=== PATIENT | female | born 1970 | race Caucasian/White ===

== ENCOUNTER 2021-08-06 08:58 | Emergency (ER) | payer BC, OTHER ==
[2021-08-06] MEDS: Alum Hydrox/Mag Hydrox/Simeth 30 ML, Lidocaine 2% 15 ML PO ONE ×2 (10:31)
[2021-08-06] MEDS: Albuterol/Ipratropium 3.0-0.5 MG/3 ML Neb Soln NEB PRN (11:16)
== END 2021-08-06 12:30 | disposition home or self-care (01) ==
LOC: JD.ED 08:58
DX: T17.590A Other foreign object in bronchus causing asphyxiation, initial encounter (principal); R07.89 Other chest pain; J45.909 Unspecified asthma, uncomplicated; Z86.16 Personal history of COVID-19; Z88.5 Allergy status to narcotic agent; Z88.2 Allergy status to sulfonamides; Z88.8 Allergy status to other drugs, medicaments and biological substances
CPT/HCPCS: 36415; 71045; 80053; 83735; 83880; 84484; 85025; 85379; 85610; 85730; 86140; 93005; 94640; 99285; A9270; 93010; J7620-GY

== ENCOUNTER 2024-10-10 04:10 | Inpatient (IN) | payer OTHER ==
[2024-10-10 04:54] LABS: BASOPHILS PERCENT AUTO 0.4 % (0.0-1.0); EOSINOPHILS ABSOLUTE AUTO 1.6 K/mm3 (0.0-0.4); EOSINOPHILS PERCENT AUTO 17.2 % (0.0-6.0); HEMATOCRIT 49.8 % (37.0-47.0); HEMOGLOBIN 15.9 gm/dl (12.0-16.0); IMMATURE GRAN ABSOLUTE AUTO 0.02 K/mm3 (0.00-0.05); IMMATURE GRAN PERCENT AUTO 0.2 % (0.0-0.4); LYMPHOCYTES ABSOLUTE AUTO 3.2 K/mm3 (1.0-4.8); LYMPHOCYTES PERCENT AUTO 35.7 % (24.0-44.0); MEAN CORPUSCULAR HEMOGLOBIN 25.6 pg (28.0-32.0); MEAN CORPUSCULAR HGB CONC 31.9 g/dl (32.0-36.0); MEAN CORPUSCULAR VOLUME 80.1 fl (83.0-99.0); MEAN PLATELET VOLUME 10.4 fl (9.4-12.3); MONOCYTES ABSOLUTE AUTO 0.4 K/mm3 (0.0-0.8); MONOCYTES PERCENT AUTO 4.7 % (0.0-8.0); NEUTROPHILS ABSOLUTE AUTO 3.8 K/mm3 (1.8-7.7); NEUTROPHILS PERCENT AUTO 41.8 % (41.0-71.0); PLATELET COUNT,PLT 307 K/mm3 (150-400); RED BLOOD CELL COUNT 6.22 M/mm3 (4.10-5.30); WHITE BLOOD CELL COUNT,WBC 9.06 K/mm3 (3.9-11.3)
[2024-10-10 05:06] LABS: ALBUMIN 3.6 g/dl (3.4-5.0); ANION GAP 17.3 (5-15); BILIRUBIN TOTAL 0.6 mg/dL (0.2-1.0); BUN/CREATININE RATIO 13.3 (14-18); CALCIUM 9.5 mg/dL (8.5-10.1); CREATININE 0.9 mg/dL (0.55-1.02); EST CRCL DRUG DOSING (CG) 66.9 mL/min; PROTEIN TOTAL,TP 7.1 g/dl (6.4-8.2)
[2024-10-10 05:07] LABS: POTASSIUM,K 4.3 mEq/L (3.5-5.1)
[2024-10-10] MEDS: Sodium Chloride 0.9% 10 ML Syringe FLUSH PRN (05:45)
[2024-10-10] MEDS: Iopamidol 612 MG/ML 100 ML Bottle IVPUSH ONE (05:45)
[2024-10-10 05:55] LABS: APPEARANCE,URINE CLEAR (Clear); BILIRUBIN,URINE NEGATIVE (Negative); COLOR,URINE LIGHT YELLOW (Yellow); GLUCOSE,URINE NEGATIVE (Negative); KETONES,URINE NEGATIVE (Negative); LEUKOCYTE ESTERASE,URINE 2+ (Negative); NITRITE,URINE NEGATIVE (Negative); OCCULT BLOOD,URINE TRACE-LYSED (Negative); PROTEIN,URINE NEGATIVE (Negative); UROBILINOGEN,URINE 0.2 (0.2-1.0)
[2024-10-10 06:03] LABS: RBC,URINE 0-5 /hpf (0-5); WBC CLUMPS,URINE FEW /hpf (NOT SEEN); WBC,URINE 75-100 /hpf (0-5)
[2024-10-10 06:04] LABS: BACTERIA,URINE FEW /hpf (FEW); MUCUS,URINE RARE /hpf (FEW)
[2024-10-10] MEDS: Sodium Chloride 0.9% 2,000 ML IV ONE (06:13)
[2024-10-10] MEDS ORDERED: Ondansetron 4 MG/2 ML SDV IV PRN (06:47)
[2024-10-10] MEDS ORDERED: Naloxone 0.4 MG/ML SDV IVPUSH PRN (06:47)
[2024-10-10] MEDS ORDERED: Acetaminophen 650 MG Supp RECTAL PRN (06:47)
[2024-10-10] MEDS: cefTRIAXone 1 GM Vial IVPUSH ONE (07:18)
[2024-10-10] MEDS: cefTRIAXone 1 GM Vial ONE (07:27)
[2024-10-10] MEDS: cefTRIAXone 1,000 MG in Sodium Chloride 0.9% 50 ML IV ONE (07:27)
[2024-10-10] MEDS: Lactated Ringers 1,000 ML IV SCH (08:13)
[2024-10-10] MEDS: Ketorolac 30 MG/ML SDV IV PRN (08:25)
[2024-10-10] MEDS ORDERED: Sennosides/Docusate Sodium 50-8.6 MG Tab PO PRN (11:24)
[2024-10-10] MEDS ORDERED: Non-Formulary Medication 1 Each (Albuterol Sulfate 8.5 GM Hfa.Aer.Ad) INH PRN (11:28)
[2024-10-10] MEDS ORDERED: Albuterol/Ipratropium 3.0-0.5 MG/3 ML Neb Soln INH PRN (11:28)
[2024-10-10 11:30] LABS: AMYLASE 65 U/L (25-115); TRIGLYCERIDES 58 mg/dL (<150)
[2024-10-10 12:08] LABS: IRON,FE 56 ug/dL (50-170); PERCENT FE SATURATION 23 % (20-55); TRANSFERRIN 195 mg/dL (202-364)
[2024-10-10 12:11] LABS: TOTAL IRON BINDING CAPACITY 244 ug/dL (100-400); TSH 1.14 uIU/mL (0.358-3.74)
[2024-10-10] MEDS: Enoxaparin 40 MG/0.4 ML Syringe SUBCUT SCH (12:11)
[2024-10-10] MEDS ORDERED: Albuterol/Ipratropium 3.0-0.5 MG/3 ML Neb Soln NEB PRN (13:33)
[2024-10-10] MEDS: HYDROmorphone 0.5 MG/0.5 ML Syringe IVPUSH PRN (14:13)
[2024-10-10] MEDS: Melatonin 3 MG Tab PO PRN (20:56)
[2024-10-11] MEDS: Acetaminophen/HYDROcodone 325-5 MG Tab PO PRN (05:42)
[2024-10-11 05:46] LABS: BASOPHILS PERCENT AUTO 0.4 % (0.0-1.0); EOSINOPHILS ABSOLUTE AUTO 1.6 K/mm3 (0.0-0.4); EOSINOPHILS PERCENT AUTO 19.6 % (0.0-6.0); HEMATOCRIT 39.9 % (37.0-47.0); IMMATURE GRAN ABSOLUTE AUTO 0.01 K/mm3 (0.00-0.05); IMMATURE GRAN PERCENT AUTO 0.1 % (0.0-0.4); LYMPHOCYTES ABSOLUTE AUTO 2.4 K/mm3 (1.0-4.8); LYMPHOCYTES PERCENT AUTO 30.4 % (24.0-44.0); MEAN CORPUSCULAR HEMOGLOBIN 25.3 pg (28.0-32.0); MEAN CORPUSCULAR HGB CONC 31.8 g/dl (32.0-36.0); MEAN CORPUSCULAR VOLUME 79.5 fl (83.0-99.0); MEAN PLATELET VOLUME 10.5 fl (9.4-12.3); MONOCYTES ABSOLUTE AUTO 0.4 K/mm3 (0.0-0.8); MONOCYTES PERCENT AUTO 5.2 % (0.0-8.0); NEUTROPHILS ABSOLUTE AUTO 3.5 K/mm3 (1.8-7.7); NEUTROPHILS PERCENT AUTO 44.3 % (41.0-71.0); PLATELET COUNT,PLT 253 K/mm3 (150-400); RED BLOOD CELL COUNT 5.02 M/mm3 (4.10-5.30); WHITE BLOOD CELL COUNT,WBC 7.94 K/mm3 (3.9-11.3)
[2024-10-11 05:52] LABS: HEMOGLOBIN 12.7 gm/dl (12.0-16.0)
[2024-10-11 06:16] LABS: A/G RATIO 0.9 (1-2); ALBUMIN 2.6 g/dl (3.4-5.0); ANION GAP 9.9 (5-15); BILIRUBIN TOTAL 0.5 mg/dL (0.2-1.0); C-REACTIVE PROTEIN 1.43 mg/dL (<0.30); CALCIUM 8.4 mg/dL (8.5-10.1); CREATININE 0.7 mg/dL (0.55-1.02); EST CRCL DRUG DOSING (CG) 65.99 mL/min; MAGNESIUM 1.8 mg/dL (1.8-2.4); PHOSPHORUS 3.7 mg/dL (2.6-4.7); POTASSIUM,K 3.9 mEq/L (3.5-5.1); PROTEIN TOTAL,TP 5.4 g/dl (6.4-8.2)
[2024-10-11] MEDS: Gadobenate Dimeglumine 529 MG/ML 20 ML SDV IVPUSH ONE (08:31)
[2024-10-11] MEDS: Sodium Chloride 0.9% 100 ML IV SCH (08:32)
[2024-10-11] MEDS ORDERED: oxyCODONE 5 MG Tab PO PRN (08:40)
[2024-10-11] MEDS: Lactated Ringers 1,000 ML IV SCH (11:15)
[2024-10-11] MEDS: Fluconazole 150 MG Tab PO ONE (15:04)
[2024-10-11] MEDS: Acetaminophen 325 MG Tab PO PRN (17:44)
[2024-10-12] MEDS: Loperamide 2 MG Cap PO PRN (05:51)
[2024-10-14 13:46] LABS: FAT, FECAL-SPLIT Normal (Normal); FAT,FECAL-NEUTRAL Normal (Normal)
[2024-10-14 15:46] LABS: CALPROTECTIN,FECAL 74 ug/g (<=49); PANCREATIC ELASTASE,FECAL >800 ug/g (>=100)
== END 2024-10-12 13:42 | disposition home or self-care (01) | DRG 439 ==
LOC: JD.ED 04:10 → JD.MS 06:47
PROVIDERS: ADMIT Student in an Organized Health Care Education/Training Program; ATTEND Internal Medicine
DX: K85.80 Other acute pancreatitis without necrosis or infection (principal); E87.20 Acidosis, unspecified; Q45.3 Other congenital malformations of pancreas and pancreatic duct; R55 Syncope and collapse; E86.0 Dehydration; S00.33XA Contusion of nose, initial encounter; M79.7 Fibromyalgia; K44.9 Diaphragmatic hernia without obstruction or gangrene; K76.0 Fatty (change of) liver, not elsewhere classified; K43.9 Ventral hernia without obstruction or gangrene; R82.90 Unspecified abnormal findings in urine; K59.09 Other constipation; K58.9 Irritable bowel syndrome, unspecified; H54.7 Unspecified visual loss; K21.9 Gastro-esophageal reflux disease without esophagitis; J32.9 Chronic sinusitis, unspecified; J45.909 Unspecified asthma, uncomplicated; Z86.16 Personal history of COVID-19; Z88.2 Allergy status to sulfonamides; Z88.8 Allergy status to other drugs, medicaments and biological substances; Z79.899 Other long term (current) drug therapy; Z90.49 Acquired absence of other specified parts of digestive tract; Z98.891 History of uterine scar from previous surgery; Z98.51 Tubal ligation status
CPT/HCPCS: 36415; 70450; 70450-26; 74177; 74177-26; 74183; 74183-26; 80053; 81001; 81025; 82150; 82306; 82705; 83540; 83605; 83630; 83690; 83735; 84100; 84443; 84466; 84478; 85025; 86140; 87045; 87046; 87086; 87328; 87329; 87899; 93005; 93010; 93306; 93880; 93880-26; 94760; 94761; 96361; 96374; 96375; 97112-GP; 97161-GP; 99284; 99285-25; A9270-GY; A9577; J0696; J1650; J1885; J7030; J7120; Q9967